=== PATIENT | female | born 2000 | race American Indian/Alaskan Native ===

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

== ENCOUNTER 2022-05-29 20:40 | Emergency (ER) | payer SELFPAY ==
[2022-05-30 03:24] VITALS: BP 161/63
== END 2022-05-30 13:45 | disposition left against medical advice (07) ==
LOC: ED 20:40
DX: R07.9 Chest pain, unspecified (principal); Z53.21 Procedure and treatment not carried out due to patient leaving prior to being seen by health care provider